=== PATIENT | female | born 2000 | race Two or more races ===

== ENCOUNTER 2019-07-04 05:50 | Emergency (ER) | payer BC ==
--- NOTE | 2019-07-04 07:15 | ER Document Report ---
ED General - General Chief Complaint: Abdominal Pain Stated Complaint: LOWER ABDOMINAL PAIN Time Seen by Provider: 07/04/19 06:58 TRAVEL OUTSIDE OF THE [place] IN LAST 30 DAYS: No - HPI Notes: Patient is a 19-year-old female who presents emergency department for evaluation of left lower quadrant pain. She states that it woke her in the middle the night. She has never had similar pain in the past. She currently states it is a sharp and cramping pain, rates it a 3 out of 5. It is made better by standi ng, worsened by sitting. She had a bowel movement prior to arrival, that she describes as normal. She states she believes it may have helped her pain somewhat. Otherwise, before going to bed, she had absolutely no complaints or concerns. She is been eating and drinking normally. Normal urination. No nausea or vomiting. No vaginal discharge or abnormal vaginal bleeding. Her last menstrual period was just over 3 weeks ago. - Related Data Allergies/Adverse Reactions: No Known Allergies Allergy (Verified 07/04/19 05:58) Home Medications: None Past Medical History - General Information source: Patient - Social History Smoking Status: Never Smoker Family History: Malignancy - Breast cancer in mother Patient has suicidal ideation: No Patient has homicidal ideation: No - Medical History Medical History: Negative Review of Systems - Review of Systems Constitutional: No symptoms reported EENT: No symptoms reported Cardiovascular: No symptoms reported Respiratory: No symptoms reported Gastrointestinal: See HPI Genitourinary: No symptoms reported Female Genitourinary: No symptoms reported Musculoskeletal: No symptoms reported Skin: No symptoms reported Neurological/Psychological: No symptoms reported Physical Exam - Vital signs Vitals: Temp Pulse Resp BP Pulse Ox 98.7 F 72 16 122/81 100 07/04/19 05:54 07/04/19 05:54 07/04/19 05:54 07/04/19 05:54 07/04/19 05:54 - Notes Notes: Vital signs reviewed, please refer to chart. Head is normocephalic, atraumatic. Pupils equal round, reactive to light. Neck is supple without meningismus. Heart is regular rate and rhythm. Lungs are clear to auscultation bilaterally. Abdomen is soft, moderate left upper and left lower quadrant tenderness to palpation without rebound or guarding, normoactive bowel sounds throughout. Extremities without cyanosis, clubbing. Posterior calves are nontender. Peripheral pulses are equal. Skin is warm and dry. Patient is awake, alert, neurological exam is nonfocal. Course - Re-evaluation Re-evalutation: 07/04/19 09:26 Patient presents emergency department for evaluation of left-sided abdominal pain. Her abdominal exam is tender but nonsurgical. Laboratory investigations revealed small blood and leukocyte esterase in her urine, but it is a contaminated specimen. Patient has absolutely no pain right now. She had no real associated symptoms. At this point I do not have a clear etiology for her pain, but I am not concerned about a more significant pathology at this time. Reexamination of the abdomen yields absolutely no tenderness. Patient is to follow-up with primary care and gynecology. She is told if her pain returns, or if she develops new or concerning symptoms of any sort, she should return immediately to the emergency department for reevaluation. Patient voiced understanding and was discharged. - Vital Signs Vital signs: Temp Pulse Resp BP Pulse Ox 98.7 F 72 16 122/81 100 07/04/19 05:54 07/04/19 05:54 07/04/19 05:54 07/04/19 05:54 07/04/19 05:54 - Laboratory Result Diagrams: 07/04/19 06:20 07/04/19 06:20 Laboratory results interpreted by me: 07/04/19 07/04/19 06:05 06:20 RDW 14.6 H Urine Blood SMALL H Ur Leukocyte Esterase MODERATE H Discharge - Discharge Clinical Impression: Left sided abdominal pain Condition: Stable Disposition: HOME, SELF-CARE Instructions: Abdominal Pain ([facility]) Additional Instructions: No clear cause was found for your abdominal pain today. Rest. Follow-up with primary care next week. If your pain worsens, or you develop new or concerning symptoms of any sort, return immediately to the emergency department for reev aluation.
[2019-07-04] MEDS ORDERED: KETOROLAC TROMETHAMINE INJ/PF 30 MG/1 ML SDV IV ONE (07:16)
[2019-07-04 07:28] LABS: ABSOLUTE EOSINOPHILS # (AUTO) 0.1 10^3/uL (0.0-0.6); ABSOLUTE LYMPHOCYTES (AUTO) 2.7 10^3/uL (0.5-4.7); ABSOLUTE MONOCYTES (AUTO) 0.5 10^3/uL (0.1-1.4); ABSOLUTE NEUT (AUTO) 3.5 10^3/uL (1.7-8.2); BASOPHILS % (AUTO) 0.4 % (0-2); EOSINOPHILS % (AUTO) 1.3 % (0-6); HEMATOCRIT 41.5 % (36.0-47.0); HEMOGLOBIN 13.7 g/dL (12.0-15.5); MEAN CORPUSCULAR HEMOGLOBIN 27.8 pg (27.0-33.4); MEAN CORPUSCULAR HGB CONC 32.9 g/dL (32.0-36.0); MEAN CORPUSCULAR VOLUME 85 fl (80-97); PLATELET COUNT 183 10^3/uL (150-450); RED BLOOD COUNT 4.92 10^6/uL (3.72-5.28); RED CELL DISTRIBUTION WIDTH 14.6 % (11.5-14.0); SEGMENTED NEUTROPHILS % (AUTO) 51.3 % (42-78); TOTAL CELLS COUNTED % (AUTO) 100 %; WHITE BLOOD COUNT 6.9 10^3/uL (4.0-10.5)
[2019-07-04 07:35] LABS: ALBUMIN 4.3 g/dL (3.5-5.0); ALKALINE PHOSPHATASE 62 U/L (38-126); ANION GAP 11 (5-19); ASPARTATE AMINO TRANSFERASE 25 U/L (14-36); BILIRUBIN,DIRECT 0.1 mg/dL (0.0-0.4); BILIRUBIN,TOTAL 0.6 mg/dL (0.2-1.3); BLOOD UREA NITROGEN 9 mg/dL (7-20); CALCIUM 9.8 mg/dL (8.4-10.2); CARBON DIOXIDE 26 mmol/L (22-30); CHLORIDE 102 mmol/L (98-107); GLUCOSE 108 mg/dL (75-110); POTASSIUM 3.9 mmol/L (3.6-5.0); TOTAL PROTEIN 7.5 g/dL (6.3-8.2)
[2019-07-04 08:01] LABS: AMORPHOUS SEDIMENT,URINE TRACE /HPF; APPEARANCE,URINE CLOUDY; BILIRUBIN,URINE NEGATIVE (NEGATIVE); CALCIUM OXALATE CRYSTALS,URINE FEW /HPF; COLOR,URINE YELLOW; GLUCOSE, URINE NEGATIVE (NEGATIVE); KETONES,URINE NEGATIVE (NEGATIVE); LEUKOCYTE ESTERASE,URINE MODERATE (NEGATIVE); NITRITE,URINE NEGATIVE (NEGATIVE); PROTEIN,URINE NEGATIVE (NEGATIVE); UROBILINOGEN,URINE NEGATIVE mg/dL (<2.0)
[2019-07-04 09:48] VITALS: BP 128/80
== END 2019-07-04 09:48 | disposition home or self-care (01) ==
LOC: ER 05:50
DX: R10.32 Left lower quadrant pain (principal)
CPT/HCPCS: 99284; 96374; 36415; 83690; 84703; 85025; 80053; 81001; J1885